=== PATIENT | male | born 1965 | race African-American/Black ===

== ENCOUNTER 2022-07-13 09:20 | Inpatient (IN) | payer OTHER ==
[2022-07-13 10:17] VITALS: BMI 23.0
[2022-07-13] MEDS ORDERED: MAGNESIUM HYDROX 2400MG/30ML ORAL SUSPENSION 30 ML CUP PO PRN (10:57)
[2022-07-13] MEDS ORDERED: POLYETHYLENE GLYCOL (HEALTHYLAX) 3350 17 GM PACKET PO PRN (10:57)
[2022-07-13] MEDS ORDERED: BENZOCAINE/MENTHOL (CHLORASEPTIC ) LOZENGE MM PRN (10:57)
[2022-07-13] MEDS ORDERED: IBUPROFEN 400 MG TABLET (FP) PO PRN (10:57)
[2022-07-13] MEDS ORDERED: NALOXONE HCL (KLOXXADO) 8 MG SPRAY NS PRN (10:57)
[2022-07-13] MEDS ORDERED: ACETAMINOPHEN 325 MG TABLET (FP) PO PRN ×2 (10:57)
[2022-07-13] MEDS ORDERED: methaDONE HCL 10 MG TABLET (FOR DETOX USE ONLY) PO ONE (10:57)
[2022-07-13] MEDS ORDERED: BISMUTH SUBSALICYLATE 524 MG/30 ML PO PRN (10:57)
[2022-07-13] MEDS ORDERED: LOPERAMIDE HCL 2 MG CAPSULE PO PRN (10:57)
[2022-07-13] MEDS ORDERED: MAG HYDROX/AL HYDROX/SIMETH 30 ML UNIT-DOSE CUP PO PRN (10:57)
[2022-07-13] MEDS ORDERED: NICOTINE 10 MG CARTRIDGE (INHALER) IH PRN (10:57)
[2022-07-13] MEDS ORDERED: ONDANSETRON *ODT* 4 MG TABLET SL PRN (10:57)
[2022-07-13] MEDS ORDERED: DICYCLOMINE HCL 10 MG CAPSULE PO PRN (10:57)
[2022-07-13] MEDS ORDERED: IBUPROFEN 600 MG TABLET (FP) PO PRN (10:57)
[2022-07-13] MEDS: diazePAM 5 MG TABLET PO SCH ×3 (11:52→22:44)
[2022-07-13] MEDS ORDERED: diazePAM 5 MG TABLET ONE (11:58)
[2022-07-13] MEDS ORDERED: methaDONE HCL 10 MG TABLET PO SCH (12:00)
[2022-07-13] MEDS: PRENATAL VITAMINS W/ FOLIC ACID TABLET (FP) PO SCH (12:40)
[2022-07-13] MEDS: METHOCARBAMOL 500 MG TABLET PO PRN (12:40)
[2022-07-13] MEDS: MELATONIN 5 MG TABLETS PO SCH (22:45)
[2022-07-13] MEDS: QUEtiapine FUMARATE 100 MG TABLET (FP) PO SCH (22:45)
[2022-07-13] MEDS: THIAMINE HCL 100 MG TABLET (FP) PO SCH (22:45)
[2022-07-14] MEDS: diazePAM 5 MG TABLET PO SCH ×4 (05:48→22:07)
[2022-07-14] MEDS: METHOCARBAMOL 500 MG TABLET PO PRN (10:44)
[2022-07-14] MEDS: PRENATAL VITAMINS W/ FOLIC ACID TABLET (FP) PO SCH (10:44)
[2022-07-14] MEDS: cloNIDine HCL 0.1 MG TABLET PO PRN ×2 (17:07→22:07)
[2022-07-14] MEDS: THIAMINE HCL 100 MG TABLET (FP) PO SCH (22:06)
[2022-07-14] MEDS: MELATONIN 5 MG TABLETS PO SCH (22:06)
[2022-07-14] MEDS: QUEtiapine FUMARATE 100 MG TABLET (FP) PO SCH (22:06)
[2022-07-15] MEDS: diazePAM 5 MG TABLET PO SCH ×3 (05:27→22:12)
[2022-07-15] MEDS ORDERED: methaDONE HCL 10 MG TABLET (FOR DETOX USE ONLY) PO ONE (10:00)
[2022-07-15] MEDS: PRENATAL VITAMINS W/ FOLIC ACID TABLET (FP) PO SCH (10:22)
[2022-07-15 12:56] LABS: HEMATOCRIT 35.9 % (35.4-49); HEMOGLOBIN 11.8 GM/dL (11.7-16.9); MCH 30.7 pg (25.7-33.7); MCHC 32.8 g/dl (32.0-35.9); MEAN CELL VOLUME 93.5 fl (80-96); MEAN PLT VOLUME 8.1 fl (7.5-11.1); PLATELET COUNT 246 10^3/uL (134-434); RBC 3.84 M/mm3 (4.00-5.60); WHITE BLOOD COUNT 4.3 K/mm3 (4.0-10.0)
[2022-07-15 14:03] LABS: ALBUMIN 3.2 g/dl (3.4-5.0); BLOOD UREA NITROGEN 14.9 mg/dL (7-18); CALCIUM 9.1 mg/dL (8.5-10.1)
[2022-07-15 14:06] LABS: CREATININE 0.8 mg/dL (0.55-1.3)
[2022-07-15 14:07] LABS: BILIRUBIN,TOTAL 0.7 mg/dL (0.2-1); TOT PROT 6.3 g/dl (6.4-8.2)
[2022-07-15] MEDS: cloNIDine HCL 0.1 MG TABLET PO PRN (17:44)
[2022-07-15] MEDS: MELATONIN 5 MG TABLETS PO SCH (22:11)
[2022-07-15] MEDS: QUEtiapine FUMARATE 100 MG TABLET (FP) PO SCH (22:12)
[2022-07-15] MEDS: THIAMINE HCL 100 MG TABLET (FP) PO SCH (22:12)
[2022-07-16] MEDS ORDERED: diazePAM 5 MG TABLET PO SCH (06:00)
[2022-07-16 06:26] VITALS: BP 141/72; PULSE 52; RESP 17; TEMP 97.5
[2022-07-17] MEDS ORDERED: diazePAM 5 MG TABLET PO ONE (06:00)
[2022-07-17] MEDS ORDERED: methaDONE HCL 10 MG TABLET (FOR DETOX USE ONLY) PO ONE (10:00)
== END 2022-07-16 09:16 | disposition home or self-care (01) | DRG 773 ==
LOC: YASAS 09:20 → Y3N 11:43
PROVIDERS: ADMIT Allergy & Immunology; ATTEND Surgery
PROC: HZ2ZZZZ Detoxification Services for Substance Abuse Treatment (ICD-10-PCS; principal; 2022-07-13)
DX: F11.23 Opioid dependence with withdrawal (principal); F10.230 Alcohol dependence with withdrawal, uncomplicated; F12.20 Cannabis dependence, uncomplicated; F17.210 Nicotine dependence, cigarettes, uncomplicated; F31.9 Bipolar disorder, unspecified; F41.9 Anxiety disorder, unspecified; R26.89 Other abnormalities of gait and mobility; Z96.651 Presence of right artificial knee joint; Z63.4 Disappearance and death of family member
CPT/HCPCS: 36415; 80053; 85027; 86780; C9803-CS; U0003; U0005

== ENCOUNTER 2022-07-18 09:17 | Inpatient (IN) | payer OTHER ==
[2022-07-18 10:41] VITALS: BMI 22.6
[2022-07-18] MEDS ORDERED: MAGNESIUM HYDROX 2400MG/30ML ORAL SUSPENSION 30 ML CUP PO PRN (11:05)
[2022-07-18] MEDS ORDERED: ACETAMINOPHEN 325 MG TABLET (FP) PO PRN (11:05)
[2022-07-18] MEDS ORDERED: LOPERAMIDE HCL 2 MG CAPSULE PO PRN (11:05)
[2022-07-18] MEDS ORDERED: guaiFENesin 200 MG/10 ML 10 ML UNIT-DOSE CUPS PO PRN (11:05)
[2022-07-18] MEDS ORDERED: IBUPROFEN 400 MG TABLET (FP) PO PRN (11:05)
[2022-07-18] MEDS ORDERED: POLYETHYLENE GLYCOL (HEALTHYLAX) 3350 17 GM PACKET PO PRN (11:05)
[2022-07-18] MEDS ORDERED: MAG HYDROX/AL HYDROX/SIMETH 30 ML UNIT-DOSE CUP PO PRN (11:05)
[2022-07-18] MEDS ORDERED: NICOTINE 10 MG CARTRIDGE (INHALER) IH PRN (11:05)
[2022-07-18] MEDS ORDERED: BENZOCAINE/MENTHOL (CHLORASEPTIC ) LOZENGE MM PRN (11:05)
[2022-07-18] MEDS ORDERED: hydrOXYzine PAMOATE 25 MG CAPSULE (FP) PO PRN (11:05)
[2022-07-18] MEDS ORDERED: P-EPHED 60MG/TRIPROLIDI 2.5MG TABLET PO PRN (11:05)
[2022-07-18 16:03] VITALS: RESP 18
[2022-07-18] MEDS: GABAPENTIN 300 MG CAPSULE PO SCH (21:42)
[2022-07-18] MEDS ORDERED: THIAMINE HCL 100 MG TABLET (FP) PO SCH (22:00)
[2022-07-18] MEDS ORDERED: MELATONIN 5 MG TABLETS PO SCH (22:00)
[2022-07-19] MEDS: GABAPENTIN 300 MG CAPSULE PO SCH (06:51)
[2022-07-19 08:24] VITALS: BP 153/91; PULSE 60; TEMP 98.3
[2022-07-19] MEDS ORDERED: methaDONE HCL 10 MG TABLET PO ONE (09:50)
[2022-07-19] MEDS ORDERED: PRENATAL VITAMINS W/ FOLIC ACID TABLET (FP) PO SCH (10:00)
[2022-07-19] MEDS ORDERED: SUVOREXANT 10 MG TABLET PO PRN (22:00)
[2022-07-19] MEDS ORDERED: QUEtiapine FUMARATE 300 MG TABLET PO SCH (22:00)
[2022-07-20] MEDS ORDERED: methaDONE HCL 10 MG TABLET PO SCH (06:00)
[2022-07-22] MEDS ORDERED: METHADONE PO SCH (06:00)
[2022-07-22] MEDS ORDERED: methaDONE HCL 10 MG TABLET PO SCH (06:00)
== END 2022-07-19 12:25 | disposition left against medical advice (07) | DRG 770 ==
LOC: YASAS 09:17 → Y5N 15:17
PROVIDERS: ADMIT Allergy & Immunology; ATTEND Family Medicine
PROC: HZ42ZZZ Group Counseling for Substance Abuse Treatment, Cognitive-Behavioral (ICD-10-PCS; principal; 2022-07-18)
DX: F11.20 Opioid dependence, uncomplicated (principal); F10.20 Alcohol dependence, uncomplicated; F17.210 Nicotine dependence, cigarettes, uncomplicated; F25.9 Schizoaffective disorder, unspecified; F31.9 Bipolar disorder, unspecified; F19.282 Other psychoactive substance dependence with psychoactive substance-induced sleep disorder; F19.280 Other psychoactive substance dependence with psychoactive substance-induced anxiety disorder; F19.24 Other psychoactive substance dependence with psychoactive substance-induced mood disorder; F41.9 Anxiety disorder, unspecified; M17.0 Bilateral primary osteoarthritis of knee; M54.50 Low back pain, unspecified; G89.29 Other chronic pain; Z96.651 Presence of right artificial knee joint
CPT/HCPCS: C9803-CS; U0003; U0005

== ENCOUNTER 2022-07-21 15:43 | Inpatient (IN) | payer OTHER ==
[2022-07-21 16:45] VITALS: BMI 21.6
[2022-07-21] MEDS ORDERED: P-EPHED 60MG/TRIPROLIDI 2.5MG TABLET PO PRN (18:08)
[2022-07-21] MEDS ORDERED: MELATONIN 5 MG TABLETS PO PRN (18:08)
[2022-07-21] MEDS ORDERED: guaiFENesin 200 MG/10 ML 10 ML UNIT-DOSE CUPS PO PRN (18:08)
[2022-07-21] MEDS ORDERED: MAGNESIUM HYDROX 2400MG/30ML ORAL SUSPENSION 30 ML CUP PO PRN (18:08)
[2022-07-21] MEDS ORDERED: LOPERAMIDE HCL 2 MG CAPSULE PO PRN (18:08)
[2022-07-21] MEDS ORDERED: BENZOCAINE/MENTHOL (CHLORASEPTIC ) LOZENGE MM PRN (18:08)
[2022-07-21] MEDS ORDERED: POLYETHYLENE GLYCOL (HEALTHYLAX) 3350 17 GM PACKET PO PRN (18:08)
[2022-07-21] MEDS ORDERED: NICOTINE POLACRILEX 2 MG GUM BC PRN (18:08)
[2022-07-22] MEDS: THIAMINE HCL 100 MG TABLET (FP) PO SCH ×2 (00:51→21:15)
[2022-07-22] MEDS: BACITRACIN 0.9 GM PACKET TP SCH ×3 (00:52→21:15)
[2022-07-22] MEDS ORDERED: methaDONE HCL 10 MG TABLET PO SCH (07:00)
[2022-07-22] MEDS: PRENATAL VITAMINS W/ FOLIC ACID TABLET (FP) PO SCH (09:29)
[2022-07-22] MEDS: GABAPENTIN 300 MG CAPSULE PO SCH ×2 (13:11→21:15)
[2022-07-22 18:24] LABS: PH,URINE 8.5 (5.0-8.0); URINE APPEARANCE CLOUDY; URINE BILIRUBIN NEGATIVE (NEGATIVE); URINE COLOR YELLOW; URINE GLUCOSE (UA) NEGATIVE (NEGATIVE); URINE KETONE NEGATIVE (NEGATIVE); URINE LEUK ESTERASE NEGATIVE (NEGATIVE); URINE NITRITE NEGATIVE (NEGATIVE); URINE PROTEIN NEGATIVE (NEGATIVE)
[2022-07-22] MEDS: QUEtiapine FUMARATE 300 MG TABLET PO SCH (21:15)
[2022-07-22] MEDS ORDERED: SUVOREXANT 10 MG TABLET PO PRN (22:00)
[2022-07-23] MEDS: GABAPENTIN 300 MG CAPSULE PO SCH ×3 (06:19→21:15)
[2022-07-23] MEDS: BACITRACIN 0.9 GM PACKET TP SCH ×2 (09:07→21:14)
[2022-07-23] MEDS: IBUPROFEN 400 MG TABLET (FP) PO PRN (09:07)
[2022-07-23] MEDS: PRENATAL VITAMINS W/ FOLIC ACID TABLET (FP) PO SCH (09:08)
[2022-07-23] MEDS: MAG HYDROX/AL HYDROX/SIMETH 30 ML UNIT-DOSE CUP PO PRN (18:26)
[2022-07-23] MEDS ORDERED: QUEtiapine FUMARATE 100 MG TABLET (FP) ONE (18:30)
[2022-07-23] MEDS: THIAMINE HCL 100 MG TABLET (FP) PO SCH (21:14)
[2022-07-23] MEDS: QUEtiapine FUMARATE 300 MG TABLET PO SCH (21:15)
[2022-07-24] MEDS ORDERED: methaDONE HCL 10 MG TABLET PO SCH (06:00)
[2022-07-24] MEDS: GABAPENTIN 300 MG CAPSULE PO SCH ×3 (06:42→21:13)
[2022-07-24] MEDS: BACITRACIN 0.9 GM PACKET TP SCH ×2 (09:07→21:12)
[2022-07-24] MEDS: IBUPROFEN 400 MG TABLET (FP) PO PRN (09:07)
[2022-07-24] MEDS: PRENATAL VITAMINS W/ FOLIC ACID TABLET (FP) PO SCH (09:07)
[2022-07-24] MEDS ORDERED: QUEtiapine FUMARATE 100 MG TABLET (FP) ONE (19:02)
[2022-07-24] MEDS: QUEtiapine FUMARATE 300 MG TABLET PO SCH (21:13)
[2022-07-24] MEDS: THIAMINE HCL 100 MG TABLET (FP) PO SCH (21:13)
[2022-07-25] MEDS: GABAPENTIN 300 MG CAPSULE PO SCH ×3 (06:23→21:16)
[2022-07-25] MEDS: IBUPROFEN 400 MG TABLET (FP) PO PRN (08:51)
[2022-07-25] MEDS: BACITRACIN 0.9 GM PACKET TP SCH ×2 (10:15→21:15)
[2022-07-25] MEDS: PRENATAL VITAMINS W/ FOLIC ACID TABLET (FP) PO SCH (10:15)
[2022-07-25] MEDS: ACETAMINOPHEN 325 MG TABLET (FP) PO PRN (10:15)
[2022-07-25] MEDS ORDERED: QUEtiapine FUMARATE 100 MG TABLET (FP) ONE (19:09)
[2022-07-25] MEDS: THIAMINE HCL 100 MG TABLET (FP) PO SCH (21:16)
[2022-07-25] MEDS: QUEtiapine FUMARATE 300 MG TABLET PO SCH (21:16)
[2022-07-26] MEDS: GABAPENTIN 300 MG CAPSULE PO SCH ×3 (06:21→21:18)
[2022-07-26] MEDS: IBUPROFEN 400 MG TABLET (FP) PO PRN (08:24)
[2022-07-26] MEDS: PRENATAL VITAMINS W/ FOLIC ACID TABLET (FP) PO SCH (09:07)
[2022-07-26] MEDS: BACITRACIN 0.9 GM PACKET TP SCH ×2 (09:07→21:17)
[2022-07-26] MEDS ORDERED: BENZOCAINE 20 % GEL TUBE MM PRN (12:30)
[2022-07-26] MEDS: amLODIPine BESYLATE 2.5 MG TABLET (FP) PO SCH (13:58)
[2022-07-26] MEDS: AMOX TR/POT CLAV 875MG/125MG TABLETS (FP) PO SCH (17:05)
[2022-07-26] MEDS ORDERED: QUEtiapine FUMARATE 100 MG TABLET (FP) ONE (18:23)
[2022-07-26] MEDS: QUEtiapine FUMARATE 300 MG TABLET PO SCH (21:17)
[2022-07-26] MEDS: THIAMINE HCL 100 MG TABLET (FP) PO SCH (21:17)
[2022-07-26] MEDS: SUVOREXANT 10 MG TABLET PO PRN (21:18)
[2022-07-27] MEDS: GABAPENTIN 300 MG CAPSULE PO SCH ×3 (06:16→21:14)
[2022-07-27] MEDS: AMOX TR/POT CLAV 875MG/125MG TABLETS (FP) PO SCH ×2 (07:06→17:21)
[2022-07-27] MEDS: BACITRACIN 0.9 GM PACKET TP SCH ×2 (09:08→21:14)
[2022-07-27] MEDS: ACETAMINOPHEN 325 MG TABLET (FP) PO PRN (09:08)
[2022-07-27] MEDS: amLODIPine BESYLATE 2.5 MG TABLET (FP) PO SCH (09:08)
[2022-07-27] MEDS: PRENATAL VITAMINS W/ FOLIC ACID TABLET (FP) PO SCH (09:08)
[2022-07-27] MEDS: ASPIRIN COATED 81 MG TABLET.EC PO SCH (09:08)
[2022-07-27] MEDS ORDERED: QUEtiapine FUMARATE 100 MG TABLET (FP) ONE (18:40)
[2022-07-27] MEDS: THIAMINE HCL 100 MG TABLET (FP) PO SCH (21:13)
[2022-07-27] MEDS: QUEtiapine FUMARATE 300 MG TABLET PO SCH (21:14)
[2022-07-27] MEDS: SUVOREXANT 10 MG TABLET PO PRN (21:14)
[2022-07-28] MEDS: GABAPENTIN 300 MG CAPSULE PO SCH ×3 (06:15→21:22)
[2022-07-28] MEDS: ACETAMINOPHEN 325 MG TABLET (FP) PO PRN ×2 (06:15→21:24)
[2022-07-28] MEDS: AMOX TR/POT CLAV 875MG/125MG TABLETS (FP) PO SCH ×2 (07:02→17:11)
[2022-07-28] MEDS: ASPIRIN COATED 81 MG TABLET.EC PO SCH (10:11)
[2022-07-28] MEDS: PRENATAL VITAMINS W/ FOLIC ACID TABLET (FP) PO SCH (10:12)
[2022-07-28] MEDS: BACITRACIN 0.9 GM PACKET TP SCH ×2 (10:12→21:22)
[2022-07-28] MEDS: amLODIPine BESYLATE 2.5 MG TABLET (FP) PO SCH (10:12)
[2022-07-28] MEDS: IBUPROFEN 400 MG TABLET (FP) PO PRN ×2 (11:49→19:04)
[2022-07-28] MEDS ORDERED: QUEtiapine FUMARATE 100 MG TABLET (FP) ONE (18:34)
[2022-07-28] MEDS: THIAMINE HCL 100 MG TABLET (FP) PO SCH (21:22)
[2022-07-28] MEDS: QUEtiapine FUMARATE 300 MG TABLET PO SCH (21:22)
[2022-07-28] MEDS: SUVOREXANT 10 MG TABLET PO PRN (21:24)
[2022-07-29] MEDS: GABAPENTIN 300 MG CAPSULE PO SCH ×3 (06:25→21:09)
[2022-07-29] MEDS: AMOX TR/POT CLAV 875MG/125MG TABLETS (FP) PO SCH ×2 (07:15→16:41)
[2022-07-29] MEDS: PRENATAL VITAMINS W/ FOLIC ACID TABLET (FP) PO SCH (09:39)
[2022-07-29] MEDS: BACITRACIN 0.9 GM PACKET TP SCH ×2 (09:39→21:09)
[2022-07-29] MEDS: amLODIPine BESYLATE 2.5 MG TABLET (FP) PO SCH (09:39)
[2022-07-29] MEDS: ASPIRIN COATED 81 MG TABLET.EC PO SCH (09:39)
[2022-07-29] MEDS: IBUPROFEN 400 MG TABLET (FP) PO PRN ×2 (12:19→21:10)
[2022-07-29] MEDS: MAG HYDROX/AL HYDROX/SIMETH 30 ML UNIT-DOSE CUP PO PRN (17:54)
[2022-07-29] MEDS ORDERED: QUEtiapine FUMARATE 100 MG TABLET (FP) ONE (18:32)
[2022-07-29] MEDS: SUVOREXANT 10 MG TABLET PO PRN (21:09)
[2022-07-29] MEDS: QUEtiapine FUMARATE 300 MG TABLET PO SCH (21:09)
[2022-07-29] MEDS: THIAMINE HCL 100 MG TABLET (FP) PO SCH (21:09)
[2022-07-30] MEDS: GABAPENTIN 300 MG CAPSULE PO SCH ×3 (06:30→21:14)
[2022-07-30] MEDS: AMOX TR/POT CLAV 875MG/125MG TABLETS (FP) PO SCH ×2 (08:05→17:37)
[2022-07-30] MEDS: IBUPROFEN 400 MG TABLET (FP) PO PRN (08:05)
[2022-07-30] MEDS: amLODIPine BESYLATE 2.5 MG TABLET (FP) PO SCH (09:47)
[2022-07-30] MEDS: BACITRACIN 0.9 GM PACKET TP SCH ×2 (09:47→21:13)
[2022-07-30] MEDS: PRENATAL VITAMINS W/ FOLIC ACID TABLET (FP) PO SCH (09:47)
[2022-07-30] MEDS: ASPIRIN COATED 81 MG TABLET.EC PO SCH (09:47)
[2022-07-30] MEDS: MAG HYDROX/AL HYDROX/SIMETH 30 ML UNIT-DOSE CUP PO PRN (14:30)
[2022-07-30] MEDS ORDERED: QUEtiapine FUMARATE 100 MG TABLET (FP) ONE (19:14)
[2022-07-30] MEDS: SUVOREXANT 10 MG TABLET PO PRN (21:14)
[2022-07-30] MEDS: THIAMINE HCL 100 MG TABLET (FP) PO SCH (21:14)
[2022-07-30] MEDS: QUEtiapine FUMARATE 300 MG TABLET PO SCH (21:14)
[2022-07-31] MEDS: GABAPENTIN 300 MG CAPSULE PO SCH ×3 (06:22→21:10)
[2022-07-31] MEDS: AMOX TR/POT CLAV 875MG/125MG TABLETS (FP) PO SCH ×2 (07:41→17:46)
[2022-07-31] MEDS: IBUPROFEN 400 MG TABLET (FP) PO PRN (09:09)
[2022-07-31] MEDS: ASPIRIN COATED 81 MG TABLET.EC PO SCH (09:10)
[2022-07-31] MEDS: PRENATAL VITAMINS W/ FOLIC ACID TABLET (FP) PO SCH (09:10)
[2022-07-31] MEDS: BACITRACIN 0.9 GM PACKET TP SCH ×2 (09:10→21:10)
[2022-07-31] MEDS: amLODIPine BESYLATE 2.5 MG TABLET (FP) PO SCH (09:10)
[2022-07-31] MEDS: ACETAMINOPHEN 325 MG TABLET (FP) PO PRN (17:48)
[2022-07-31] MEDS ORDERED: QUEtiapine FUMARATE 100 MG TABLET (FP) ONE (18:29)
[2022-07-31] MEDS: THIAMINE HCL 100 MG TABLET (FP) PO SCH (21:09)
[2022-07-31] MEDS: QUEtiapine FUMARATE 300 MG TABLET PO SCH (21:10)
[2022-07-31] MEDS: SUVOREXANT 10 MG TABLET PO PRN (21:11)
[2022-08-01] MEDS: GABAPENTIN 300 MG CAPSULE PO SCH ×3 (06:08→21:06)
[2022-08-01] MEDS: AMOX TR/POT CLAV 875MG/125MG TABLETS (FP) PO SCH ×2 (07:07→16:32)
[2022-08-01] MEDS: MAG HYDROX/AL HYDROX/SIMETH 30 ML UNIT-DOSE CUP PO PRN (07:21)
[2022-08-01] MEDS: amLODIPine BESYLATE 2.5 MG TABLET (FP) PO SCH (09:44)
[2022-08-01] MEDS: BACITRACIN 0.9 GM PACKET TP SCH ×2 (09:44→21:06)
[2022-08-01] MEDS: ASPIRIN COATED 81 MG TABLET.EC PO SCH (09:44)
[2022-08-01] MEDS: PRENATAL VITAMINS W/ FOLIC ACID TABLET (FP) PO SCH (09:44)
[2022-08-01] MEDS: IBUPROFEN 400 MG TABLET (FP) PO PRN (16:31)
[2022-08-01] MEDS ORDERED: QUEtiapine FUMARATE 100 MG TABLET (FP) ONE (18:42)
[2022-08-01] MEDS: THIAMINE HCL 100 MG TABLET (FP) PO SCH (21:06)
[2022-08-01] MEDS: QUEtiapine FUMARATE 300 MG TABLET PO SCH (21:07)
[2022-08-01] MEDS: SUVOREXANT 10 MG TABLET PO PRN (21:07)
[2022-08-02] MEDS: GABAPENTIN 300 MG CAPSULE PO SCH ×3 (06:03→21:37)
[2022-08-02] MEDS: AMOX TR/POT CLAV 875MG/125MG TABLETS (FP) PO SCH (07:28)
[2022-08-02] MEDS: amLODIPine BESYLATE 2.5 MG TABLET (FP) PO SCH (10:07)
[2022-08-02] MEDS: ASPIRIN COATED 81 MG TABLET.EC PO SCH (10:07)
[2022-08-02] MEDS: BACITRACIN 0.9 GM PACKET TP SCH ×2 (10:07→21:36)
[2022-08-02] MEDS: PRENATAL VITAMINS W/ FOLIC ACID TABLET (FP) PO SCH (10:08)
[2022-08-02] MEDS: IBUPROFEN 400 MG TABLET (FP) PO PRN ×2 (10:09→19:02)
[2022-08-02] MEDS: THIAMINE HCL 100 MG TABLET (FP) PO SCH (21:36)
[2022-08-02] MEDS: SUVOREXANT 10 MG TABLET PO PRN (21:37)
[2022-08-02] MEDS: QUEtiapine FUMARATE 300 MG TABLET PO SCH (21:37)
[2022-08-03] MEDS: GABAPENTIN 300 MG CAPSULE PO SCH ×3 (06:31→21:19)
[2022-08-03] MEDS: PRENATAL VITAMINS W/ FOLIC ACID TABLET (FP) PO SCH (10:13)
[2022-08-03] MEDS: amLODIPine BESYLATE 2.5 MG TABLET (FP) PO SCH (10:13)
[2022-08-03] MEDS: BACITRACIN 0.9 GM PACKET TP SCH ×2 (10:13→21:19)
[2022-08-03] MEDS: IBUPROFEN 400 MG TABLET (FP) PO PRN ×2 (10:13→19:02)
[2022-08-03] MEDS: ASPIRIN COATED 81 MG TABLET.EC PO SCH (10:13)
[2022-08-03] MEDS ORDERED: FLU VACC QS2022-23(6MOS UP)/PF 60 MCG/0.5 ML SYRINGE IM ONE (12:00)
[2022-08-03] MEDS ORDERED: QUEtiapine FUMARATE 100 MG TABLET (FP) ONE (19:28)
[2022-08-03] MEDS: THIAMINE HCL 100 MG TABLET (FP) PO SCH (21:19)
[2022-08-03] MEDS: QUEtiapine FUMARATE 300 MG TABLET PO SCH (21:19)
[2022-08-03] MEDS: SUVOREXANT 10 MG TABLET PO PRN (21:20)
[2022-08-03] MEDS ORDERED: SUVOREXANT 10 MG TABLET PO PRN (22:00)
[2022-08-04] MEDS: GABAPENTIN 300 MG CAPSULE PO SCH ×3 (06:13→21:06)
[2022-08-04] MEDS: ACETAMINOPHEN 325 MG TABLET (FP) PO PRN (08:48)
[2022-08-04] MEDS: MAG HYDROX/AL HYDROX/SIMETH 30 ML UNIT-DOSE CUP PO PRN (08:53)
[2022-08-04] MEDS: ASPIRIN COATED 81 MG TABLET.EC PO SCH (09:23)
[2022-08-04] MEDS: BACITRACIN 0.9 GM PACKET TP SCH ×2 (09:23→21:06)
[2022-08-04] MEDS: amLODIPine BESYLATE 2.5 MG TABLET (FP) PO SCH (09:24)
[2022-08-04] MEDS: PRENATAL VITAMINS W/ FOLIC ACID TABLET (FP) PO SCH (09:24)
[2022-08-04] MEDS ORDERED: QUEtiapine FUMARATE 100 MG TABLET (FP) ONE (18:16)
[2022-08-04] MEDS: IBUPROFEN 400 MG TABLET (FP) PO PRN (19:22)
[2022-08-04] MEDS: THIAMINE HCL 100 MG TABLET (FP) PO SCH (21:05)
[2022-08-04] MEDS: QUEtiapine FUMARATE 300 MG TABLET PO SCH (21:06)
[2022-08-05] MEDS: GABAPENTIN 300 MG CAPSULE PO SCH (06:23)
[2022-08-05 06:44] VITALS: RESP 20; TEMP 97.1
[2022-08-05 09:02] VITALS: BP 117/72; PULSE 105
[2022-08-05] MEDS: BACITRACIN 0.9 GM PACKET TP SCH (09:33)
[2022-08-05] MEDS: amLODIPine BESYLATE 2.5 MG TABLET (FP) PO SCH (09:33)
[2022-08-05] MEDS: ASPIRIN COATED 81 MG TABLET.EC PO SCH (09:34)
[2022-08-05] MEDS: PRENATAL VITAMINS W/ FOLIC ACID TABLET (FP) PO SCH (09:34)
== END 2022-08-05 09:35 | disposition home or self-care (01) | DRG 772 ==
LOC: YASAS 15:43 → Y3E 07-22 00:19
PROVIDERS: ADMIT Allergy & Immunology; ATTEND Family Medicine
PROC: HZ42ZZZ Group Counseling for Substance Abuse Treatment, Cognitive-Behavioral (ICD-10-PCS; principal; 2022-07-22)
DX: F11.20 Opioid dependence, uncomplicated (principal); F10.20 Alcohol dependence, uncomplicated; F14.20 Cocaine dependence, uncomplicated; F17.210 Nicotine dependence, cigarettes, uncomplicated; F19.282 Other psychoactive substance dependence with psychoactive substance-induced sleep disorder; F19.280 Other psychoactive substance dependence with psychoactive substance-induced anxiety disorder; F25.9 Schizoaffective disorder, unspecified; F31.9 Bipolar disorder, unspecified; F41.8 Other specified anxiety disorders; M54.50 Low back pain, unspecified; G89.29 Other chronic pain; Z96.652 Presence of left artificial knee joint; Z63.4 Disappearance and death of family member
CPT/HCPCS: 81003; 82962; C9803-CS; Q2036; U0003; U0005

== ENCOUNTER 2022-09-06 12:04 | Inpatient (IN) | payer OTHER ==
[2022-09-06 12:56] VITALS: BMI 22.8
[2022-09-06] MEDS ORDERED: MAG HYDROX/AL HYDROX/SIMETH 30 ML UNIT-DOSE CUP PO PRN (14:30)
[2022-09-06] MEDS ORDERED: ONDANSETRON *ODT* 4 MG TABLET SL PRN (14:30)
[2022-09-06] MEDS ORDERED: POLYETHYLENE GLYCOL (HEALTHYLAX) 3350 17 GM PACKET PO PRN (14:30)
[2022-09-06] MEDS ORDERED: BISMUTH SUBSALICYLATE 262 MG/15 ML BTL PO PRN (14:30)
[2022-09-06] MEDS ORDERED: BENZOCAINE/MENTHOL (CHLORASEPTIC ) LOZENGE MM PRN (14:30)
[2022-09-06] MEDS ORDERED: DICYCLOMINE HCL 10 MG CAPSULE PO PRN (14:30)
[2022-09-06] MEDS ORDERED: guaiFENesin 600 MG TABLET.ER (FP) PO PRN (14:30)
[2022-09-06] MEDS ORDERED: methaDONE HCL 10 MG TABLET (FOR DETOX USE ONLY) PO ONE (14:30)
[2022-09-06] MEDS ORDERED: BENZONATATE 200 MG CAPSULE PO PRN (14:30)
[2022-09-06] MEDS ORDERED: MAGNESIUM HYDROX 2400MG/30ML ORAL SUSPENSION 30 ML CUP PO PRN (14:30)
[2022-09-06] MEDS ORDERED: NALOXONE HCL 0.4 MG/ML VIAL IM PRN (14:30)
[2022-09-06] MEDS ORDERED: LOPERAMIDE HCL 2 MG CAPSULE PO PRN (14:30)
[2022-09-06] MEDS ORDERED: NALOXONE HCL (KLOXXADO) 8 MG SPRAY NS PRN (14:30)
[2022-09-06] MEDS ORDERED: ACETAMINOPHEN 325 MG TABLET (FP) PO PRN (14:30)
[2022-09-06] MEDS ORDERED: NICOTINE 21 MG/24 HOURS TOPICAL PATCH TD PRN (16:44)
[2022-09-06] MEDS ORDERED: NICOTINE POLACRILEX 4 MG GUM BUC PRN (16:44)
[2022-09-06] MEDS: IBUPROFEN 600 MG TABLET (FP) PO PRN (17:12)
[2022-09-06] MEDS: hydrOXYzine PAMOATE 25 MG CAPSULE (FP) PO PRN (18:16)
[2022-09-06] MEDS: cloNIDine HCL 0.1 MG TABLET PO PRN (18:16)
[2022-09-06 19:23] LABS: HEMATOCRIT 37.8 % (35.4-49); HEMOGLOBIN 12.2 GM/dL (11.7-16.9); MCH 29.8 pg (25.7-33.7); MCHC 32.3 g/dl (32.0-35.9); MEAN CELL VOLUME 92.2 fl (80-96); MEAN PLT VOLUME 7.7 fl (7.5-11.1); PLATELET COUNT 351 10^3/uL (134-434); WHITE BLOOD COUNT 5.4 K/mm3 (4.0-10.0)
[2022-09-06 19:37] LABS: CALCIUM 9.3 mg/dL (8.5-10.1)
[2022-09-06 19:38] LABS: ALBUMIN 3.5 g/dl (3.4-5.0); BLOOD UREA NITROGEN 9.6 mg/dL (7-18)
[2022-09-06 19:42] LABS: CREATININE 0.8 mg/dL (0.55-1.3)
[2022-09-06 19:43] LABS: BILIRUBIN,TOTAL 0.7 mg/dL (0.2-1); TOT PROT 6.7 g/dl (6.4-8.2)
[2022-09-06] MEDS ORDERED: MELATONIN 5 MG TABLETS PO SCH (22:00)
[2022-09-06] MEDS: THIAMINE HCL 100 MG TABLET (FP) PO SCH (22:35)
[2022-09-06] MEDS: METHOCARBAMOL 500 MG TABLET PO PRN (22:38)
[2022-09-07] MEDS: METHOCARBAMOL 500 MG TABLET PO PRN (09:06)
[2022-09-07] MEDS: hydrOXYzine PAMOATE 25 MG CAPSULE (FP) PO PRN ×2 (09:06→20:48)
[2022-09-07] MEDS: ASPIRIN COATED 81 MG TABLET.EC PO SCH (09:06)
[2022-09-07] MEDS: IBUPROFEN 400 MG TABLET (FP) PO PRN (09:08)
[2022-09-07] MEDS: PRENATAL VITAMINS W/ FOLIC ACID TABLET (FP) PO SCH (09:14)
[2022-09-07] MEDS ORDERED: PNEUMOC 20-VAL CONJ-DIP CRM/PF 0.5 ML SYRINGE IM ONE (12:00)
[2022-09-07] MEDS: NICOTINE 10 MG CARTRIDGE (INHALER) IH PRN (12:47)
[2022-09-07] MEDS: GABAPENTIN 300 MG CAPSULE PO SCH ×2 (13:12→22:09)
[2022-09-07] MEDS: diazePAM 5 MG TABLET PO PRN ×2 (13:12→22:09)
[2022-09-07] MEDS: QUEtiapine FUMARATE 300 MG TABLET PO SCH (22:09)
[2022-09-07] MEDS: SUVOREXANT 10 MG TABLET PO PRN (22:09)
[2022-09-07] MEDS: THIAMINE HCL 100 MG TABLET (FP) PO SCH (22:10)
[2022-09-07] MEDS: cloNIDine HCL 0.1 MG TABLET PO PRN (22:12)
[2022-09-08] MEDS: GABAPENTIN 300 MG CAPSULE PO SCH ×3 (05:43→22:12)
[2022-09-08] MEDS ORDERED: methaDONE HCL 10 MG TABLET (FOR DETOX USE ONLY) PO ONE (10:00)
[2022-09-08] MEDS: PRENATAL VITAMINS W/ FOLIC ACID TABLET (FP) PO SCH (10:23)
[2022-09-08] MEDS: ASPIRIN COATED 81 MG TABLET.EC PO SCH (10:23)
[2022-09-08] MEDS: IBUPROFEN 600 MG TABLET (FP) PO PRN ×2 (10:26→22:12)
[2022-09-08] MEDS: diazePAM 5 MG TABLET PO PRN ×3 (12:28→22:13)
[2022-09-08] MEDS: hydrOXYzine PAMOATE 25 MG CAPSULE (FP) PO PRN (16:43)
[2022-09-08] MEDS: cloNIDine HCL 0.1 MG TABLET PO PRN (16:43)
[2022-09-08] MEDS: THIAMINE HCL 100 MG TABLET (FP) PO SCH (22:11)
[2022-09-08] MEDS: SUVOREXANT 10 MG TABLET PO PRN (22:11)
[2022-09-08] MEDS: QUEtiapine FUMARATE 300 MG TABLET PO SCH (22:11)
[2022-09-08] MEDS: METHOCARBAMOL 500 MG TABLET PO PRN (22:11)
[2022-09-09] MEDS: GABAPENTIN 300 MG CAPSULE PO SCH ×3 (06:02→22:14)
[2022-09-09] MEDS: PRENATAL VITAMINS W/ FOLIC ACID TABLET (FP) PO SCH (10:07)
[2022-09-09] MEDS: ASPIRIN COATED 81 MG TABLET.EC PO SCH (10:07)
[2022-09-09] MEDS: diazePAM 5 MG TABLET PO PRN ×3 (10:08→22:15)
[2022-09-09] MEDS: NICOTINE 10 MG CARTRIDGE (INHALER) IH PRN (11:18)
[2022-09-09] MEDS: hydrOXYzine PAMOATE 25 MG CAPSULE (FP) PO PRN ×2 (13:31→22:14)
[2022-09-09] MEDS: amLODIPine BESYLATE 2.5 MG TABLET (FP) PO SCH (14:58)
[2022-09-09] MEDS: METHOCARBAMOL 500 MG TABLET PO PRN (22:14)
[2022-09-09] MEDS: SUVOREXANT 10 MG TABLET PO PRN (22:14)
[2022-09-09] MEDS: THIAMINE HCL 100 MG TABLET (FP) PO SCH (22:14)
[2022-09-09] MEDS: QUEtiapine FUMARATE 300 MG TABLET PO SCH (22:14)
[2022-09-10] MEDS: GABAPENTIN 300 MG CAPSULE PO SCH ×3 (05:37→22:09)
[2022-09-10] MEDS ORDERED: methaDONE HCL 10 MG TABLET (FOR DETOX USE ONLY) PO ONE (10:00)
[2022-09-10] MEDS: ASPIRIN COATED 81 MG TABLET.EC PO SCH (10:29)
[2022-09-10] MEDS: hydrOXYzine PAMOATE 25 MG CAPSULE (FP) PO PRN ×2 (10:29→17:21)
[2022-09-10] MEDS: METHOCARBAMOL 500 MG TABLET PO PRN ×2 (10:29→22:09)
[2022-09-10] MEDS: amLODIPine BESYLATE 2.5 MG TABLET (FP) PO SCH (10:29)
[2022-09-10] MEDS: PRENATAL VITAMINS W/ FOLIC ACID TABLET (FP) PO SCH (10:30)
[2022-09-10] MEDS: IBUPROFEN 600 MG TABLET (FP) PO PRN (10:31)
[2022-09-10] MEDS: NICOTINE 10 MG CARTRIDGE (INHALER) IH PRN ×3 (10:35→22:11)
[2022-09-10] MEDS ORDERED: diazePAM 5 MG TABLET PO ONE (14:04)
[2022-09-10] MEDS: IBUPROFEN 400 MG TABLET (FP) PO PRN (17:21)
[2022-09-10] MEDS: SUVOREXANT 10 MG TABLET PO PRN (21:55)
[2022-09-10] MEDS: QUEtiapine FUMARATE 300 MG TABLET PO SCH (22:09)
[2022-09-10] MEDS: THIAMINE HCL 100 MG TABLET (FP) PO SCH (22:09)
[2022-09-11] MEDS: GABAPENTIN 300 MG CAPSULE PO SCH (05:49)
[2022-09-11 06:17] VITALS: RESP 18
[2022-09-11 09:34] VITALS: BP 101/70; PULSE 73; TEMP 97.8
[2022-09-11] MEDS: METHOCARBAMOL 500 MG TABLET PO PRN (09:42)
[2022-09-11] MEDS: amLODIPine BESYLATE 2.5 MG TABLET (FP) PO SCH (09:42)
[2022-09-11] MEDS: hydrOXYzine PAMOATE 25 MG CAPSULE (FP) PO PRN (09:42)
[2022-09-11] MEDS: ASPIRIN COATED 81 MG TABLET.EC PO SCH (09:42)
[2022-09-11] MEDS: PRENATAL VITAMINS W/ FOLIC ACID TABLET (FP) PO SCH (09:43)
[2022-09-11] MEDS: NICOTINE 10 MG CARTRIDGE (INHALER) IH PRN (10:18)
== END 2022-09-11 11:10 | disposition other institution (70) | DRG 773 ==
LOC: YASAS 12:04 → Y6N 14:53
PROVIDERS: ADMIT Allergy & Immunology; ATTEND Surgery
PROC: HZ2ZZZZ Detoxification Services for Substance Abuse Treatment (ICD-10-PCS; principal; 2022-09-06)
DX: F10.230 Alcohol dependence with withdrawal, uncomplicated (principal); F11.20 Opioid dependence, uncomplicated; F17.210 Nicotine dependence, cigarettes, uncomplicated; F19.280 Other psychoactive substance dependence with psychoactive substance-induced anxiety disorder; F19.282 Other psychoactive substance dependence with psychoactive substance-induced sleep disorder; F25.9 Schizoaffective disorder, unspecified; F31.9 Bipolar disorder, unspecified; I10 Essential (primary) hypertension; M17.0 Bilateral primary osteoarthritis of knee; M54.50 Low back pain, unspecified; G89.29 Other chronic pain; Z99.89 Dependence on other enabling machines and devices; Z63.4 Disappearance and death of family member
CPT/HCPCS: 36415; 80053; 83036; 85027; 86780; 90677; 93005; 93010; C9803-CS; U0003; U0005

== ENCOUNTER 2023-01-23 19:03 | Inpatient (IN) | payer OTHER ==
[2023-01-23 19:30] VITALS: BMI 23.8
[2023-01-23] MEDS ORDERED: MAGNESIUM HYDROX 2400MG/30ML ORAL SUSPENSION 30 ML CUP PO PRN (20:59)
[2023-01-23] MEDS ORDERED: POLYETHYLENE GLYCOL (HEALTHYLAX) 3350 17 GM PACKET PO PRN (20:59)
[2023-01-23] MEDS ORDERED: BENZONATATE 200 MG CAPSULE PO PRN (20:59)
[2023-01-23] MEDS ORDERED: IBUPROFEN 600 MG TABLET (FP) PO PRN (20:59)
[2023-01-23] MEDS ORDERED: NALOXONE HCL 0.4 MG/ML VIAL IM PRN (20:59)
[2023-01-23] MEDS ORDERED: LOPERAMIDE HCL 2 MG CAPSULE PO PRN (20:59)
[2023-01-23] MEDS ORDERED: DICYCLOMINE HCL 10 MG CAPSULE PO PRN (20:59)
[2023-01-23] MEDS ORDERED: guaiFENesin 600 MG TABLET.ER (FP) PO PRN (20:59)
[2023-01-23] MEDS ORDERED: NALOXONE HCL (KLOXXADO) 8 MG SPRAY NS PRN (20:59)
[2023-01-23] MEDS ORDERED: BENZOCAINE/MENTHOL (CHLORASEPTIC ) LOZENGE MM PRN (20:59)
[2023-01-23] MEDS ORDERED: ACETAMINOPHEN 325 MG TABLET (FP) PO PRN (20:59)
[2023-01-23] MEDS ORDERED: IBUPROFEN 400 MG TABLET (FP) PO PRN (20:59)
[2023-01-23] MEDS ORDERED: ONDANSETRON *ODT* 4 MG TABLET SL PRN (20:59)
[2023-01-23] MEDS ORDERED: BISMUTH SUBSALICYLATE 524 MG/30 ML PO PRN (20:59)
[2023-01-23] MEDS ORDERED: MAG HYDROX/AL HYDROX/SIMETH 30 ML UNIT-DOSE CUP PO PRN (20:59)
[2023-01-23] MEDS: THIAMINE HCL 100 MG TABLET (FP) PO SCH (21:56)
[2023-01-23] MEDS ORDERED: MELATONIN 5 MG TABLETS PO SCH (22:00)
[2023-01-24] MEDS ORDERED: methaDONE HCL 10 MG TABLET PO ONE (08:59)
[2023-01-24] MEDS ORDERED: ACETAMINOPHEN 325 MG TABLET (FP) PO PRN (09:07)
[2023-01-24] MEDS: METHOCARBAMOL 500 MG TABLET PO PRN (09:22)
[2023-01-24] MEDS: PRENATAL VITAMINS W/ FOLIC ACID TABLET (FP) PO SCH (09:22)
[2023-01-24] MEDS ORDERED: chlordiazePOXIDE HCL 25 MG CAPSULE PO PRN (09:52)
[2023-01-24 10:50] LABS: POTASSIUM 4.6 mmol/L (3.5-5.1)
[2023-01-24 10:52] LABS: ALBUMIN 3.4 g/dl (3.4-5.0); BLOOD UREA NITROGEN 16.7 mg/dL (7-18); CALCIUM 9.1 mg/dL (8.5-10.1)
[2023-01-24 10:53] LABS: HEMATOCRIT 38.1 % (35.4-49); HEMOGLOBIN 12.5 GM/dL (11.7-16.9); MCH 29.5 pg (25.7-33.7); MCHC 32.8 g/dl (32.0-35.9); MEAN CELL VOLUME 90.1 fl (80-96); MEAN PLT VOLUME 7.6 fl (7.5-11.1); PLATELET COUNT 330 10^3/uL (134-434); RBC 4.23 M/mm3 (4.00-5.60); RDW 14.3 % (11.9-15.9); WHITE BLOOD COUNT 4.9 K/mm3 (4.0-10.0)
[2023-01-24 10:55] LABS: CREATININE 1.1 mg/dL (0.55-1.3)
[2023-01-24 10:57] LABS: TOT PROT 6.8 g/dl (6.4-8.2)
[2023-01-24] MEDS: chlordiazePOXIDE HCL 25 MG CAPSULE PO SCH ×3 (11:15→22:13)
[2023-01-24] MEDS: GABAPENTIN 300 MG CAPSULE PO SCH ×2 (13:13→22:13)
[2023-01-24] MEDS ORDERED: SUVOREXANT 10 MG TABLET PO PRN (22:00)
[2023-01-24] MEDS ORDERED: QUEtiapine FUMARATE 300 MG TABLET PO SCH (22:00)
[2023-01-24] MEDS: THIAMINE HCL 100 MG TABLET (FP) PO SCH (22:13)
[2023-01-25] MEDS: chlordiazePOXIDE HCL 25 MG CAPSULE PO SCH ×2 (05:32→10:16)
[2023-01-25] MEDS: GABAPENTIN 300 MG CAPSULE PO SCH ×2 (05:32→13:40)
[2023-01-25] MEDS ORDERED: methaDONE HCL 10 MG TABLET PO SCH (06:00)
[2023-01-25] MEDS: METHOCARBAMOL 500 MG TABLET PO PRN (10:16)
[2023-01-25] MEDS: PRENATAL VITAMINS W/ FOLIC ACID TABLET (FP) PO SCH (10:17)
[2023-01-25 12:46] VITALS: BP 144/74; PULSE 99; RESP 17; TEMP 97.5
[2023-01-26] MEDS ORDERED: chlordiazePOXIDE HCL 25 MG CAPSULE PO SCH (05:00)
[2023-01-27] MEDS ORDERED: chlordiazePOXIDE HCL 10 MG CAPSULE PO PRN
[2023-01-27] MEDS ORDERED: chlordiazePOXIDE HCL 10 MG CAPSULE PO SCH (05:00)
[2023-01-28] MEDS ORDERED: chlordiazePOXIDE HCL 10 MG CAPSULE PO SCH (05:00)
[2023-01-29] MEDS ORDERED: chlordiazePOXIDE HCL 10 MG CAPSULE PO ONE (05:00)
== END 2023-01-25 14:50 | disposition left against medical advice (07) | DRG 770 ==
LOC: YASAS 19:03 → Y6N 21:30
PROVIDERS: ADMIT Allergy & Immunology; ATTEND Surgery
PROC: HZ2ZZZZ Detoxification Services for Substance Abuse Treatment (ICD-10-PCS; principal; 2023-01-23)
DX: F10.230 Alcohol dependence with withdrawal, uncomplicated (principal); F11.20 Opioid dependence, uncomplicated; F14.20 Cocaine dependence, uncomplicated; F12.20 Cannabis dependence, uncomplicated; F25.9 Schizoaffective disorder, unspecified; M17.0 Bilateral primary osteoarthritis of knee; M54.50 Low back pain, unspecified; G89.29 Other chronic pain; Z87.891 Personal history of nicotine dependence; Z56.0 Unemployment, unspecified; Z59.00 Homelessness unspecified
CPT/HCPCS: 36415; 80053; 85027; 86780; 87635

== ENCOUNTER 2023-10-20 10:48 | Inpatient (IN) | payer OTHER ==
[2023-10-20 11:20] VITALS: BMI 21.8
[2023-10-20] MEDS ORDERED: ONDANSETRON *ODT* 4 MG TABLET SL PRN (12:00)
[2023-10-20] MEDS ORDERED: guaiFENesin 600 MG TABLET.ER (FP) PO PRN (12:00)
[2023-10-20] MEDS ORDERED: NALOXONE HCL (KLOXXADO) 8 MG SPRAY NS PRN (12:00)
[2023-10-20] MEDS ORDERED: BISMUTH SUBSALICYLATE 262 MG/15 ML BTL PO PRN (12:00)
[2023-10-20] MEDS ORDERED: ACETAMINOPHEN 325 MG TABLET (FP) PO PRN (12:00)
[2023-10-20] MEDS ORDERED: hydrOXYzine PAMOATE 25 MG CAPSULE (FP) PO PRN (12:00)
[2023-10-20] MEDS ORDERED: MAG HYDROX/AL HYDROX/SIMETH 30 ML UNIT-DOSE CUP PO PRN (12:00)
[2023-10-20] MEDS ORDERED: BENZONATATE 200 MG CAPSULE PO PRN (12:00)
[2023-10-20] MEDS ORDERED: NALOXONE HCL 0.4 MG/ML VIAL IM PRN (12:00)
[2023-10-20] MEDS ORDERED: DICYCLOMINE HCL 10 MG CAPSULE PO PRN (12:00)
[2023-10-20] MEDS ORDERED: LORazepam 1 MG TABLET PO PRN (12:00)
[2023-10-20] MEDS ORDERED: BENZOCAINE/MENTHOL (CHLORASEPTIC ) LOZENGE MM PRN (12:00)
[2023-10-20] MEDS ORDERED: LOPERAMIDE HCL 2 MG CAPSULE PO PRN (12:00)
[2023-10-20] MEDS: PRENATAL VITAMINS W/ FOLIC ACID TABLET (FP) PO SCH (12:55)
[2023-10-20] MEDS: IBUPROFEN 400 MG TABLET (FP) PO PRN (12:55)
[2023-10-20] MEDS: NICOTINE 14 MG/24 HOURS TOPICAL PATCH TD SCH (12:56)
[2023-10-20] MEDS: GABAPENTIN 300 MG CAPSULE PO SCH (14:55)
[2023-10-20] MEDS: LORazepam 2 MG TABLET PO SCH (17:24)
[2023-10-20] MEDS: POLYETHYLENE GLYCOL (HEALTHYLAX) 3350 17 GM PACKET PO PRN (20:33)
[2023-10-20] MEDS: IBUPROFEN 600 MG TABLET (FP) PO PRN (22:43)
[2023-10-20] MEDS: MELATONIN 5 MG TABLETS PO SCH (22:43)
[2023-10-20] MEDS: THIAMINE 100 MG TABLET PO SCH (22:43)
[2023-10-21] MEDS ORDERED: CITALOPRAM HYDROBROMIDE 10 MG TABLET PO SCH (10:00)
[2023-10-21] MEDS ORDERED: methaDONE HCL 40 MG DISPERSABLE TABLET PO SCH (10:00)
[2023-10-21] MEDS: amLODIPine BESYLATE 2.5 MG TABLET (FP) PO SCH (10:43)
[2023-10-21] MEDS: ASPIRIN COATED 81 MG TABLET.EC PO SCH (10:43)
[2023-10-21 11:48] LABS: HEMATOCRIT 35.4 % (35.4-49); HEMOGLOBIN 11.6 GM/dL (11.7-16.9); MCH 30.4 pg (25.7-33.7); MCHC 32.7 g/dl (32.0-35.9); MEAN PLT VOLUME 7.6 fl (7.5-11.1); PLATELET COUNT 285 10^3/uL (134-434); RBC 3.81 M/mm3 (4.00-5.60); RDW 14.5 % (11.9-15.9); WHITE BLOOD COUNT 4.9 K/mm3 (4.0-10.0)
[2023-10-21 11:51] LABS: POTASSIUM 4.1 mmol/L (3.5-5.1)
[2023-10-21 12:02] LABS: CALCIUM 8.8 mg/dL (8.5-10.1)
[2023-10-21 12:03] LABS: ALBUMIN 3.3 g/dl (3.4-5.0)
[2023-10-21 12:04] LABS: CREATININE 0.9 mg/dL (0.55-1.3)
[2023-10-21 12:05] LABS: TOT PROT 6.8 g/dl (6.4-8.2)
[2023-10-21 12:06] LABS: BILIRUBIN,TOTAL 0.6 mg/dL (0.2-1)
[2023-10-21] MEDS: ESCITALOPRAM OXALATE 10 MG TABLET PO SCH (12:06)
[2023-10-21] MEDS: LACTULOSE 20 GM/30 ML UDC (FOR ORAL USE ONLY) PO SCH (13:01)
[2023-10-21] MEDS: METHOCARBAMOL 500 MG TABLET PO PRN (18:04)
[2023-10-21] MEDS: MAGNESIUM HYDROX 2400MG/30ML ORAL SUSPENSION 30 ML CUP PO PRN (20:34)
[2023-10-21] MEDS: QUEtiapine FUMARATE 50 MG TABLET PO SCH (23:04)
[2023-10-22] MEDS: LORazepam 1 MG TABLET PO SCH (06:08)
[2023-10-23] MEDS ORDERED: LORazepam 0.5 MG TABLET PO PRN
[2023-10-23] MEDS: LORazepam 0.5 MG TABLET PO SCH (05:34)
[2023-10-24] MEDS: LORazepam 0.5 MG TABLET PO ONE (05:55)
[2023-10-24 07:42] VITALS: RESP 16
[2023-10-24 09:06] VITALS: BP 114/70; PULSE 68; TEMP 97.5
== END 2023-10-24 09:48 | disposition home or self-care (01) | DRG 773 ==
LOC: YASAS 10:48 → Y6N 12:06
PROVIDERS: ADMIT Allergy & Immunology; ATTEND Surgery
PROC: HZ2ZZZZ Detoxification Services for Substance Abuse Treatment (ICD-10-PCS; principal; 2023-10-20)
DX: F10.230 Alcohol dependence with withdrawal, uncomplicated (principal); F11.20 Opioid dependence, uncomplicated; F12.20 Cannabis dependence, uncomplicated; F17.210 Nicotine dependence, cigarettes, uncomplicated; F19.280 Other psychoactive substance dependence with psychoactive substance-induced anxiety disorder; F19.24 Other psychoactive substance dependence with psychoactive substance-induced mood disorder; F25.9 Schizoaffective disorder, unspecified; I10 Essential (primary) hypertension; M17.0 Bilateral primary osteoarthritis of knee; M54.50 Low back pain, unspecified; G89.29 Other chronic pain; R79.89 Other specified abnormal findings of blood chemistry; Z99.89 Dependence on other enabling machines and devices; Z56.0 Unemployment, unspecified; Z59.00 Homelessness unspecified
CPT/HCPCS: 36415; 80053; 80307; 82140; 85027; 86780; 93005; 93010

== ENCOUNTER 2023-12-02 14:27 | Inpatient (IN) | payer OTHER ==
[2023-12-02 16:06] VITALS: BMI 20.9
[2023-12-02] MEDS ORDERED: IBUPROFEN 400 MG TABLET (FP) PO PRN (17:36)
[2023-12-02] MEDS ORDERED: DICYCLOMINE HCL 10 MG CAPSULE PO PRN (17:36)
[2023-12-02] MEDS ORDERED: BENZOCAINE/MENTHOL (CHLORASEPTIC ) LOZENGE MM PRN (17:36)
[2023-12-02] MEDS ORDERED: guaiFENesin 600 MG TABLET.ER (FP) PO PRN (17:36)
[2023-12-02] MEDS ORDERED: NICOTINE POLACRILEX 2 MG GUM BUC PRN (17:36)
[2023-12-02] MEDS ORDERED: ONDANSETRON *ODT* 4 MG TABLET SL PRN (17:36)
[2023-12-02] MEDS ORDERED: MAG HYDROX/AL HYDROX/SIMETH 30 ML UNIT-DOSE CUP PO PRN (17:36)
[2023-12-02] MEDS ORDERED: BENZONATATE 200 MG CAPSULE PO PRN (17:36)
[2023-12-02] MEDS ORDERED: NALOXONE HCL 0.4 MG/ML VIAL IM PRN (17:36)
[2023-12-02] MEDS ORDERED: NALOXONE (NARCAN) HCL 4 MG/0.1 ML SPRAY NS PRN (17:36)
[2023-12-02] MEDS ORDERED: LOPERAMIDE HCL 2 MG CAPSULE PO PRN (17:36)
[2023-12-02] MEDS ORDERED: NICOTINE POLACRILEX 2 MG LOZENGE BC PRN (17:36)
[2023-12-02] MEDS ORDERED: BISMUTH SUBSALICYLATE 524 MG/30 ML PO PRN (17:36)
[2023-12-02] MEDS ORDERED: diazePAM 5 MG TABLET PO PRN (17:38)
[2023-12-02] MEDS: MELATONIN 5 MG TABLETS PO SCH (22:52)
[2023-12-02] MEDS: THIAMINE 100 MG TABLET PO SCH (22:52)
[2023-12-02] MEDS: diazePAM 5 MG TABLET PO SCH (22:53)
[2023-12-03] MEDS: IBUPROFEN 600 MG TABLET (FP) PO PRN (01:33)
[2023-12-03] MEDS: METHOCARBAMOL 500 MG TABLET PO PRN ×2 (01:33→14:19)
[2023-12-03] MEDS: methaDONE HCL 40 MG DISPERSABLE TABLET PO SCH (11:32)
[2023-12-03] MEDS: PRENATAL VITAMINS W/ FOLIC ACID TABLET (FP) PO SCH (11:32)
[2023-12-03 15:18] LABS: CHLORIDE 101 mmol/L (98-107); HEMOGLOBIN 12.1 GM/dL (11.7-16.9); MCH 31.3 pg (25.7-33.7); MCHC 33.6 g/dl (32.0-35.9); MEAN CELL VOLUME 93.3 fl (80-96); MEAN PLT VOLUME 7.6 fl (7.5-11.1); PLATELET COUNT 283 10^3/uL (134-434); POTASSIUM 4.7 mmol/L (3.5-5.1); RBC 3.86 M/mm3 (4.00-5.60); RDW 14.2 % (11.9-15.9); SODIUM 139 mmol/L (136-145); WHITE BLOOD COUNT 6.1 K/mm3 (4.0-10.0)
[2023-12-03 15:27] LABS: ALBUMIN 3.1 g/dl (3.4-5.0); CALCIUM 8.9 mg/dL (8.5-10.1)
[2023-12-03 15:28] LABS: ANION GAP 4 mmol/L (4-13); CO2 34 mmol/L (21-32); GLUCOSE,RANDOM 112 mg/dL (74-106)
[2023-12-03 15:30] LABS: CREATININE 0.8 mg/dL (0.55-1.3); SGPT/ALT 57 U/L (13-61)
[2023-12-03 15:31] LABS: SGOT/AST 76 U/L (15-37)
[2023-12-03 15:32] LABS: BILIRUBIN,TOTAL 0.7 mg/dL (0.2-1); TOT PROT 6.1 g/dl (6.4-8.2)
[2023-12-03 15:33] LABS: ALK PHOS 146 U/L (45-117)
[2023-12-03] MEDS: MAGNESIUM HYDROX 2400MG/30ML ORAL SUSPENSION 30 ML CUP PO PRN (17:07)
[2023-12-03] MEDS: ASPIRIN COATED 81 MG TABLET.EC PO SCH (19:52)
[2023-12-03] MEDS: amLODIPine BESYLATE 2.5 MG TABLET (FP) PO SCH (19:52)
[2023-12-03] MEDS: ACETAMINOPHEN 325 MG TABLET (FP) PO PRN (22:51)
[2023-12-04] MEDS: diazePAM 5 MG TABLET PO SCH (05:50)
[2023-12-04] MEDS: LISINOPRIL 5 MG TABLET PO ONE (13:40)
[2023-12-04] MEDS: LIDOCAINE 5% TOPICAL PATCH TP SCH (13:40)
[2023-12-04] MEDS: ACAMPROSATE CALCIUM 333 MG TABLET.DR PO SCH (21:35)
[2023-12-04] MEDS: LIDOCAINE PATCH REMOVAL MC SCH (21:38)
[2023-12-05] MEDS: diazePAM 5 MG TABLET PO ONE (05:16)
[2023-12-05] MEDS: amLODIPine BESYLATE 5 MG TABLET (FP) PO SCH (10:51)
[2023-12-06] MEDS: ESCITALOPRAM OXALATE 10 MG TABLET PO SCH (15:13)
[2023-12-06] MEDS: POLYETHYLENE GLYCOL (HEALTHYLAX) 3350 17 GM PACKET PO PRN (18:31)
[2023-12-06] MEDS: QUEtiapine FUMARATE 300 MG TABLET PO SCH (21:56)
[2023-12-07 06:15] VITALS: RESP 16
[2023-12-07 12:13] VITALS: BP 111/66; PULSE 93; TEMP 97.6
== END 2023-12-07 09:35 | disposition home or self-care (01) | DRG 773 ==
LOC: YASAS 14:27 → Y6N 19:26
PROVIDERS: ADMIT Allergy & Immunology; ATTEND Surgery
PROC: HZ2ZZZZ Detoxification Services for Substance Abuse Treatment (ICD-10-PCS; principal; 2023-12-02)
DX: F10.230 Alcohol dependence with withdrawal, uncomplicated (principal); F11.20 Opioid dependence, uncomplicated; F12.20 Cannabis dependence, uncomplicated; F17.213 Nicotine dependence, cigarettes, with withdrawal; F19.282 Other psychoactive substance dependence with psychoactive substance-induced sleep disorder; F19.24 Other psychoactive substance dependence with psychoactive substance-induced mood disorder; F25.9 Schizoaffective disorder, unspecified; M17.0 Bilateral primary osteoarthritis of knee; M54.50 Low back pain, unspecified; G89.29 Other chronic pain; Z99.89 Dependence on other enabling machines and devices
CPT/HCPCS: 36415; 80053; 80305; 80307; 85027

== ENCOUNTER 2024-01-03 15:54 | Inpatient (IN) | payer OTHER ==
[2024-01-03 17:55] VITALS: BMI 22.0
[2024-01-03] MEDS ORDERED: ONDANSETRON *ODT* 4 MG TABLET SL PRN (18:40)
[2024-01-03] MEDS ORDERED: ACETAMINOPHEN 325 MG TABLET (FP) PO PRN (18:40)
[2024-01-03] MEDS ORDERED: guaiFENesin 600 MG TABLET.ER (FP) PO PRN (18:40)
[2024-01-03] MEDS ORDERED: DICYCLOMINE HCL 10 MG CAPSULE PO PRN (18:40)
[2024-01-03] MEDS ORDERED: LOPERAMIDE HCL 2 MG CAPSULE PO PRN (18:40)
[2024-01-03] MEDS ORDERED: chlordiazePOXIDE HCL 25 MG CAPSULE PO PRN (18:46)
[2024-01-03] MEDS ORDERED: ACETAMINOPHEN 325 MG TABLET (FP) ONE (18:54)
[2024-01-03] MEDS: ACETAMINOPHEN 325 MG TABLET (FP) PO ONE (18:56)
[2024-01-03] MEDS ORDERED: diazePAM 5 MG TABLET PO PRN (18:59)
[2024-01-03] MEDS: METHOCARBAMOL 500 MG TABLET PO PRN (20:30)
[2024-01-03] MEDS: THIAMINE 100 MG TABLET PO SCH (22:26)
[2024-01-03] MEDS: diazePAM 5 MG TABLET PO SCH (22:26)
[2024-01-03] MEDS ORDERED: chlordiazePOXIDE HCL 25 MG CAPSULE PO SCH (23:00)
[2024-01-04] MEDS: ASPIRIN 81 MG CHEWABLE TABLETS PO SCH (09:20)
[2024-01-04] MEDS: amLODIPine BESYLATE 5 MG TABLET (FP) PO SCH (09:21)
[2024-01-04] MEDS: LISINOPRIL 5 MG TABLET PO SCH (09:21)
[2024-01-04] MEDS: methaDONE HCL 40 MG DISPERSABLE TABLET PO ONE (09:22)
[2024-01-04] MEDS: PRENATAL VITAMINS W/ FOLIC ACID TABLET (FP) PO SCH (09:23)
[2024-01-04] MEDS: IBUPROFEN 400 MG TABLET (FP) PO PRN (09:26)
[2024-01-04 11:54] LABS: HEMATOCRIT 36.2 % (35.4-49); HEMOGLOBIN 11.8 GM/dL (11.7-16.9); MCH 30.5 pg (25.7-33.7); MCHC 32.6 g/dl (32.0-35.9); MEAN CELL VOLUME 93.6 fl (80-96); PLATELET COUNT 187 10^3/uL (134-434); RBC 3.86 M/mm3 (4.00-5.60); RDW 14.8 % (11.9-15.9); WHITE BLOOD COUNT 5.5 K/mm3 (4.0-10.0)
[2024-01-04] MEDS: ACAMPROSATE CALCIUM 333 MG TABLET.DR PO SCH (13:25)
[2024-01-04 14:04] LABS: CHLORIDE 104 mmol/L (98-107); POTASSIUM 4.2 mmol/L (3.5-5.1); SODIUM 142 mmol/L (136-145)
[2024-01-04 14:15] LABS: ALBUMIN 3.1 g/dl (3.4-5.0); CALCIUM 8.8 mg/dL (8.5-10.1)
[2024-01-04 14:16] LABS: BLOOD UREA NITROGEN 15.5 mg/dL (7-18); GLUCOSE,RANDOM 91 mg/dL (74-106)
[2024-01-04 14:17] LABS: CO2 32 mmol/L (21-32)
[2024-01-04 14:18] LABS: CREATININE 0.8 mg/dL (0.55-1.3)
[2024-01-04 14:19] LABS: SGOT/AST 70 U/L (15-37)
[2024-01-04 14:20] LABS: BILIRUBIN,TOTAL 1.1 mg/dL (0.2-1); SGPT/ALT 57 U/L (13-61)
[2024-01-04 14:22] LABS: ALK PHOS 152 U/L (45-117); TOT PROT 6.6 g/dl (6.4-8.2)
[2024-01-04] MEDS: ESCITALOPRAM OXALATE 10 MG TABLET PO SCH (14:24)
[2024-01-04] MEDS: QUEtiapine FUMARATE 300 MG TABLET PO SCH (22:39)
[2024-01-05] MEDS ORDERED: chlordiazePOXIDE HCL 25 MG CAPSULE PO SCH (05:00)
[2024-01-05] MEDS: methaDONE HCL 40 MG DISPERSABLE TABLET PO SCH (06:29)
[2024-01-05] MEDS: diazePAM 5 MG TABLET PO SCH (06:30)
[2024-01-06] MEDS ORDERED: chlordiazePOXIDE HCL 10 MG CAPSULE PO PRN
[2024-01-06] MEDS ORDERED: chlordiazePOXIDE HCL 10 MG CAPSULE PO SCH (05:00)
[2024-01-06] MEDS: diazePAM 5 MG TABLET PO SCH (06:14)
[2024-01-06] MEDS: MAGNESIUM HYDROX 2400MG/30ML ORAL SUSPENSION 30 ML CUP PO PRN (17:28)
[2024-01-06] MEDS: BISMUTH SUBSALICYLATE 524 MG/30 ML PO PRN (21:39)
[2024-01-06] MEDS: SUVOREXANT 10 MG TABLET PO PRN (22:45)
[2024-01-07] MEDS ORDERED: chlordiazePOXIDE HCL 10 MG CAPSULE PO SCH (05:00)
[2024-01-07] MEDS: diazePAM 5 MG TABLET PO ONE (07:08)
[2024-01-08] MEDS ORDERED: chlordiazePOXIDE HCL 10 MG CAPSULE PO ONE (05:00)
[2024-01-08] MEDS: NICOTINE 14 MG/24 HOURS TOPICAL PATCH TD PRN (15:54)
[2024-01-08] MEDS: hydrOXYzine PAMOATE 25 MG CAPSULE (FP) PO PRN (17:18)
[2024-01-09 10:03] VITALS: BP 117/63; PULSE 84; RESP 18; TEMP 97.6
== END 2024-01-09 12:06 | disposition other institution (70) | DRG 773 ==
LOC: YASAS 15:54 → Y6N 19:35
PROVIDERS: ADMIT Allergy & Immunology; ATTEND Surgery
PROC: HZ2ZZZZ Detoxification Services for Substance Abuse Treatment (ICD-10-PCS; principal; 2024-01-03)
DX: F10.230 Alcohol dependence with withdrawal, uncomplicated (principal); F11.20 Opioid dependence, uncomplicated; F14.20 Cocaine dependence, uncomplicated; F12.20 Cannabis dependence, uncomplicated; F25.1 Schizoaffective disorder, depressive type; F19.282 Other psychoactive substance dependence with psychoactive substance-induced sleep disorder; F19.24 Other psychoactive substance dependence with psychoactive substance-induced mood disorder; I10 Essential (primary) hypertension; Z86.2 Personal history of diseases of the blood and blood-forming organs and certain disorders involving the immune mechanism; Z87.39 Personal history of other diseases of the musculoskeletal system and connective tissue; Z99.89 Dependence on other enabling machines and devices
CPT/HCPCS: 36415; 80053; 80305; 85027; 86780; 87811; 93005; 93010

== ENCOUNTER 2024-01-09 12:15 | Inpatient (IN) | payer OTHER ==
[2024-01-09] MEDS ORDERED: POLYETHYLENE GLYCOL (HEALTHYLAX) 3350 17 GM PACKET PO PRN (13:14)
[2024-01-09] MEDS ORDERED: LOPERAMIDE HCL 2 MG CAPSULE PO PRN (13:14)
[2024-01-09] MEDS ORDERED: guaiFENesin 600 MG TABLET.ER (FP) PO PRN (13:14)
[2024-01-09] MEDS ORDERED: NALOXONE (NARCAN) HCL 4 MG/0.1 ML SPRAY NS PRN (13:14)
[2024-01-09] MEDS ORDERED: NICOTINE POLACRILEX 4 MG GUM BUC PRN (13:14)
[2024-01-09] MEDS ORDERED: BENZOCAINE/MENTHOL (CHLORASEPTIC ) LOZENGE MM PRN (13:14)
[2024-01-09] MEDS ORDERED: IBUPROFEN 400 MG TABLET (FP) PO PRN (13:14)
[2024-01-09] MEDS ORDERED: BENZONATATE 200 MG CAPSULE PO PRN (13:14)
[2024-01-09] MEDS ORDERED: NICOTINE POLACRILEX 4 MG LOZENGE BC PRN (13:14)
[2024-01-09] MEDS ORDERED: NALOXONE HCL 0.4 MG/ML VIAL IVPUSH PRN (13:14)
[2024-01-09] MEDS: ACAMPROSATE CALCIUM 333 MG TABLET.DR PO SCH (13:42)
[2024-01-09] MEDS: hydrOXYzine PAMOATE 25 MG CAPSULE (FP) PO PRN (13:43)
[2024-01-09] MEDS ORDERED: QUEtiapine FUMARATE 100 MG TABLET (FP) ONE (21:03)
[2024-01-09] MEDS: QUEtiapine FUMARATE 300 MG TABLET PO SCH (21:03)
[2024-01-09] MEDS: THIAMINE 100 MG TABLET PO SCH (21:03)
[2024-01-09] MEDS: MELATONIN 5 MG TABLETS PO SCH (21:03)
[2024-01-10] MEDS: methaDONE HCL 40 MG DISPERSABLE TABLET PO SCH (06:18)
[2024-01-10] MEDS: PRENATAL VITAMINS W/ FOLIC ACID TABLET (FP) PO SCH (10:32)
[2024-01-10] MEDS: ASPIRIN 81 MG CHEWABLE TABLETS PO SCH (10:32)
[2024-01-10] MEDS: NICOTINE 7 MG/24 HOURS TOPICAL PATCH TD SCH (10:32)
[2024-01-10] MEDS: ESCITALOPRAM OXALATE 10 MG TABLET PO SCH (10:32)
[2024-01-10] MEDS: amLODIPine BESYLATE 5 MG TABLET (FP) PO SCH (10:33)
[2024-01-10] MEDS: LISINOPRIL 5 MG TABLET PO SCH (10:34)
[2024-01-10] MEDS: LIDOCAINE 4% PATCH TP SCH (12:27)
[2024-01-10] MEDS: METHOCARBAMOL 500 MG TABLET PO PRN (13:24)
[2024-01-10] MEDS: hydrOXYzine PAMOATE 50 MG CAPSULE (FP) PO PRN (19:43)
[2024-01-10] MEDS ORDERED: QUEtiapine FUMARATE 100 MG TABLET (FP) ONE (21:07)
[2024-01-10] MEDS: LIDOCAINE PATCH REMOVAL MC SCH (22:23)
[2024-01-11] MEDS: IBUPROFEN 600 MG TABLET (FP) PO PRN (06:03)
[2024-01-11] MEDS ORDERED: QUEtiapine FUMARATE 100 MG TABLET (FP) ONE (21:23)
[2024-01-11] MEDS: SUVOREXANT 10 MG TABLET PO PRN (21:27)
[2024-01-12] MEDS ORDERED: QUEtiapine FUMARATE 100 MG TABLET (FP) ONE (21:03)
[2024-01-13] MEDS ORDERED: QUEtiapine FUMARATE 100 MG TABLET (FP) ONE (20:34)
[2024-01-13] MEDS: SUVOREXANT 10 MG TABLET PO PRN (21:16)
[2024-01-14] MEDS: ESCITALOPRAM OXALATE 10 MG TABLET PO SCH (09:49)
[2024-01-16] MEDS: ACETAMINOPHEN 325 MG TABLET (FP) PO PRN (10:03)
[2024-01-16] MEDS ORDERED: QUEtiapine FUMARATE 100 MG TABLET (FP) ONE (21:05)
[2024-01-16] MEDS: SUVOREXANT 10 MG TABLET PO PRN (21:07)
[2024-01-17] MEDS: MAGNESIUM HYDROX 2400MG/30ML ORAL SUSPENSION 30 ML CUP PO PRN (16:59)
[2024-01-17] MEDS ORDERED: QUEtiapine FUMARATE 100 MG TABLET (FP) ONE (21:25)
[2024-01-17] MEDS: SUVOREXANT 10 MG TABLET PO PRN (21:26)
[2024-01-19] MEDS: MAG HYDROX/AL HYDROX/SIMETH 30 ML UNIT-DOSE CUP PO PRN (14:27)
[2024-01-19] MEDS: LACTULOSE 20 GM/30 ML UDC (FOR ORAL USE ONLY) PO SCH (21:32)
[2024-01-19] MEDS: SUVOREXANT 10 MG TABLET PO PRN (21:34)
[2024-01-20] MEDS: SENNOSIDES 8.6MG TABLET (FP) PO SCH (13:20)
[2024-01-20] MEDS ORDERED: QUEtiapine FUMARATE 100 MG TABLET (FP) ONE (20:19)
[2024-01-20] MEDS: DOCUSATE SODIUM 100 MG CAPSULE (FP) PO SCH (21:08)
[2024-01-21] MEDS ORDERED: QUEtiapine FUMARATE 100 MG TABLET (FP) ONE (21:36)
[2024-01-23 06:09] VITALS: TEMP 96.9
[2024-01-23 09:09] VITALS: BP 104/61; PULSE 79; RESP 17
== END 2024-01-23 09:21 | disposition home or self-care (01) | DRG 772 ==
LOC: YASAS 12:15 → Y3W 12:16
PROVIDERS: ADMIT Allergy & Immunology; ATTEND Psychiatry & Neurology Pain Medicine
PROC: HZ42ZZZ Group Counseling for Substance Abuse Treatment, Cognitive-Behavioral (ICD-10-PCS; principal; 2024-01-09)
DX: F10.20 Alcohol dependence, uncomplicated (principal); F11.20 Opioid dependence, uncomplicated; F14.20 Cocaine dependence, uncomplicated; F12.20 Cannabis dependence, uncomplicated; F17.210 Nicotine dependence, cigarettes, uncomplicated; F31.9 Bipolar disorder, unspecified; F25.9 Schizoaffective disorder, unspecified; F19.282 Other psychoactive substance dependence with psychoactive substance-induced sleep disorder; F19.280 Other psychoactive substance dependence with psychoactive substance-induced anxiety disorder; F19.24 Other psychoactive substance dependence with psychoactive substance-induced mood disorder; D53.9 Nutritional anemia, unspecified; K59.00 Constipation, unspecified; M54.50 Low back pain, unspecified; G89.29 Other chronic pain; Z99.89 Dependence on other enabling machines and devices; Z59.01 Sheltered homelessness
CPT/HCPCS: 36415; 82140; 86803

== ENCOUNTER 2024-06-06 18:53 | Inpatient (IN) | payer OTHER ==
[2024-06-06 19:38] VITALS: BMI 23.0
[2024-06-06] MEDS ORDERED: guaiFENesin 600 MG TABLET.ER (FP) PO PRN (19:58)
[2024-06-06] MEDS ORDERED: IBUPROFEN 400 MG TABLET (FP) PO PRN (19:58)
[2024-06-06] MEDS ORDERED: BISMUTH SUBSALICYLATE 524 MG/30 ML PO PRN (19:58)
[2024-06-06] MEDS ORDERED: MAGNESIUM HYDROX 2400MG/30ML ORAL SUSPENSION 30 ML CUP PO PRN (19:58)
[2024-06-06] MEDS ORDERED: BENZONATATE 200 MG CAPSULE PO PRN (19:58)
[2024-06-06] MEDS ORDERED: ONDANSETRON *ODT* 4 MG TABLET SL PRN (19:58)
[2024-06-06] MEDS ORDERED: MAG HYDROX/AL HYDROX/SIMETH 30 ML UNIT-DOSE CUP PO PRN (19:58)
[2024-06-06] MEDS ORDERED: LOPERAMIDE HCL 2 MG CAPSULE PO PRN (19:58)
[2024-06-06] MEDS ORDERED: POLYETHYLENE GLYCOL (HEALTHYLAX) 3350 17 GM PACKET PO PRN (19:58)
[2024-06-06] MEDS ORDERED: NALOXONE (NARCAN) HCL 4 MG/0.1 ML SPRAY NS PRN (19:58)
[2024-06-06] MEDS ORDERED: DICYCLOMINE HCL 10 MG CAPSULE PO PRN (19:58)
[2024-06-06] MEDS ORDERED: BENZOCAINE/MENTHOL (CHLORASEPTIC ) LOZENGE MM PRN (19:58)
[2024-06-06] MEDS ORDERED: NICOTINE POLACRILEX 2 MG GUM BUC PRN (19:58)
[2024-06-06] MEDS ORDERED: diazePAM 5 MG TABLET ONE (21:41)
[2024-06-06] MEDS: diazePAM 5 MG TABLET PO PRN (21:46)
[2024-06-06] MEDS: THIAMINE 100 MG TABLET PO SCH (22:11)
[2024-06-06] MEDS: diazePAM 5 MG TABLET PO SCH (22:55)
[2024-06-06] MEDS: MELATONIN 5 MG TABLETS PO SCH (22:55)
[2024-06-07] MEDS: methaDONE HCL 40 MG DISPERSABLE TABLET PO SCH (07:14)
[2024-06-07] MEDS: LISINOPRIL 5 MG TABLET PO SCH (10:26)
[2024-06-07] MEDS: DOCUSATE SODIUM 100 MG CAPSULE (FP) PO SCH (10:26)
[2024-06-07] MEDS: ASPIRIN 81 MG CHEWABLE TABLETS PO SCH (10:26)
[2024-06-07] MEDS: PRENATAL VITAMINS W/ FOLIC ACID TABLET (FP) PO SCH (10:26)
[2024-06-07] MEDS: NICOTINE 14 MG/24 HOURS TOPICAL PATCH TD SCH (10:26)
[2024-06-07 13:35] LABS: HEMATOCRIT 37.2 % (35.4-49); HEMOGLOBIN 11.9 GM/dL (11.7-16.9); MCH 30.8 pg (25.7-33.7); MCHC 31.9 g/dl (32.0-35.9); MEAN CELL VOLUME 96.5 fl (80-96); PLATELET COUNT 243 10^3/uL (134-434); RBC 3.86 M/mm3 (4.00-5.60); RDW 13.9 % (11.9-15.9); WHITE BLOOD COUNT 5.7 K/mm3 (4.0-10.0)
[2024-06-07 13:45] LABS: CHLORIDE 104 mmol/L (98-107); POTASSIUM 4.8 mmol/L (3.5-5.1); SODIUM 143 mmol/L (136-145)
[2024-06-07 14:04] LABS: ALBUMIN 3.1 g/dl (3.4-5.0); ANION GAP 6 mmol/L (4-13); CALCIUM 9.2 mg/dL (8.5-10.1); CO2 33 mmol/L (21-32)
[2024-06-07 14:05] LABS: GLUCOSE,RANDOM 113 mg/dL (74-106)
[2024-06-07 14:07] LABS: SGPT/ALT 49 U/L (13-61)
[2024-06-07 14:08] LABS: CREATININE 0.9 mg/dL (0.55-1.3); SGOT/AST 72 U/L (15-37)
[2024-06-07 14:09] LABS: BILIRUBIN,TOTAL 0.8 mg/dL (0.2-1); TOT PROT 6.4 g/dl (6.4-8.2)
[2024-06-07 14:10] LABS: ALK PHOS 125 U/L (45-117)
[2024-06-07] MEDS: ACETAMINOPHEN 325 MG TABLET (FP) PO PRN (17:38)
[2024-06-07] MEDS: QUEtiapine FUMARATE 200 MG TABLET PO SCH (22:32)
[2024-06-07] MEDS: IBUPROFEN 600 MG TABLET (FP) PO PRN (22:33)
[2024-06-08] MEDS: diazePAM 5 MG TABLET PO SCH (02:50)
[2024-06-08] MEDS: ESCITALOPRAM OXALATE 10 MG TABLET PO SCH (09:46)
[2024-06-09] MEDS: MELATONIN 5 MG TABLETS PO ONE (00:24)
[2024-06-09] MEDS ORDERED: diazePAM 5 MG TABLET PO SCH (06:00)
[2024-06-09] MEDS: LACTULOSE 20 GM/30 ML UDC (FOR ORAL USE ONLY) PO SCH (15:25)
[2024-06-10] MEDS: diazePAM 5 MG TABLET PO ONE (05:34)
[2024-06-10] MEDS: NALOXONE (NYS OPIOID OVERDOSE PROGRAM) 4 MG/0.1 ML SPRAY NS SCH (07:22)
[2024-06-10 10:07] VITALS: BP 136/78; PULSE 67; RESP 18; TEMP 98
== END 2024-06-10 10:06 | disposition home or self-care (01) | DRG 773 ==
LOC: YASAS 18:53 → Y3N 21:24
PROVIDERS: ADMIT Allergy & Immunology; ATTEND Surgery
PROC: HZ2ZZZZ Detoxification Services for Substance Abuse Treatment (ICD-10-PCS; principal; 2024-06-06)
DX: F10.230 Alcohol dependence with withdrawal, uncomplicated (principal); F11.20 Opioid dependence, uncomplicated; F12.20 Cannabis dependence, uncomplicated; F17.213 Nicotine dependence, cigarettes, with withdrawal; F25.9 Schizoaffective disorder, unspecified; I10 Essential (primary) hypertension; M17.0 Bilateral primary osteoarthritis of knee; M54.59 Other low back pain; G89.29 Other chronic pain; Z96.651 Presence of right artificial knee joint; Z56.0 Unemployment, unspecified; Z59.01 Sheltered homelessness
CPT/HCPCS: 36415; 80053; 80307; 82140; 85027; 86780